=== PATIENT | male | born 1955 | race Caucasian/White ===

== ENCOUNTER → 2019-03-06 | Day surgery (SDC) | payer BC ==
[2019-03-05 15:44] VITALS: BMI 24.7
[~2019-03-06] MED LIST: Fentanyl 100 MCG/2 ML VIAL ONE; Midazolam HCl 2 mg/2 ml Vial ONE
[2019-03-06 08:32] LABS: Hemoglobin 12.6 g/dL (14.0-18.0); Platelet Count 264 thou/uL (130-400)
[2019-03-06 08:56] LABS: Anion Gap 10 mmol/L (10-20); BUN (Urea Nitrogen) 17 mg/dL (8.4-25.7); Calc. Creatinine Clearance 89 mL/min (70-130); Calcium 9.5 mg/dL (7.8-10.44); Carbon Dioxide 28 mmol/L (23-31); Chloride 105 mmol/L (98-107); Estimated GFR-MDRD 84; Glucose 96 mg/dL (80-115); Potassium 4.1 mmol/L (3.5-5.1); Sodium 139 mmol/L (136-145)
--- NOTE | 2019-03-07 09:22 | OP ---
DATE OF PROCEDURE: 03/06/2019 PREOPERATIVE DIAGNOSIS: Right tonsil mass. POSTOPERATIVE DIAGNOSIS: Right tonsil mass. PROCEDURE PERFORMED: 1. Direct laryngoscopy. 2. Right tonsillectomy for biopsy over 12. FINDINGS: The patient had a large firm tonsil that was rubbery in quality and sent for fresh histologic evaluation and lymphoma studies. PROCEDURE IN DETAIL: After consent was obtained, the patient was identified and brought to the operating room, and placed on the operating room table in the supine position. General endotracheal anesthesia was obtained. The patient was positioned for surgery. We then underwent systematic evaluation under anesthesia including laryngoscopy. No abnormalities other than the tonsil was found during examination. The tonsil was exophytic and rubbery in quality. The patient underwent a hemostatic tonsillectomy by first placing a Shayy-Juan Diego mouth gag and then grasping the tonsil, retracting it medially within a Reagan tip electrocautery. The tonsil was hemostatically dissected from the underlying pharyngeal musculature. Ultimately the posterior tonsillar pillar mucosa and the base of tongue connection was transected and this specimen was sent for histologic evaluation and lymphoma studies. There was no bleeding, it was addressed with the suction cautery and the patient was then awakened, extubated, taken to the recovery room in stable condition prior to discharge to home. Job ID: [id number]
== END ==
LOC: SDC 07:11
PROVIDERS: ATTEND Specialist
PROC: 0CTPXZZ Resection of Tonsils, External Approach (ICD-10-PCS; principal; 2019-03-06)
PROC: 0CJS8ZZ Inspection of Larynx, Via Natural or Artificial Opening Endoscopic (ICD-10-PCS; principal; 2019-03-06)
DX: C09.9 Malignant neoplasm of tonsil, unspecified (principal); I10 Essential (primary) hypertension; K21.9 Gastro-esophageal reflux disease without esophagitis; Z79.899 Other long term (current) drug therapy; Z87.891 Personal history of nicotine dependence; Z88.5 Allergy status to narcotic agent
CPT/HCPCS: 36415; 80048; 85014; 85018; 85049; 88184; 88304; 88309; 88341; 88342; 93005; 93010; J2250; J3010

== ENCOUNTER 2019-04-01 14:08 | Outpatient (CLI) | payer BC ==
--- NOTE | 2019-04-01 15:33 | PET ---
Radionucleotide with CT attenuation correction HISTORY: Squamous cell carcinoma right tonsil. Initial staging. FINDINGS: Physiologic uptake of radiotracer throughout the enteric system and along each urinary trac t. No abnormal tonsillar uptake or other abnormalities are apparent. Images of the torso show physiologic uptake. No hypermetabolic activity. Nondiagnostic CT attenuation correction images show mild mucosal thickening in the right maxillary si nus. Calcification within the carotid arteries and throughout the other arterial structures. Bovine origin of the great vessels at the aortic arch. Left renal cyst. Postoperative changes of the right colon. Scattered diverticula of the colon without adjacent inflamm ation. IMPRESSION: No scintigraphic evidence of residual or metastatic neoplasm. Right maxillary sinusitis. Atherosclerosis. Diverticulosis. No evidence of diverticulitis.
== END 2019-04-01 14:09 | disposition home or self-care (01) ==
LOC: PET 14:08
PROVIDERS: ATTEND Radiology Radiation Oncology
DX: C09.9 Malignant neoplasm of tonsil, unspecified (principal); C09.8 Malignant neoplasm of overlapping sites of tonsil; J32.0 Chronic maxillary sinusitis; I70.0 Atherosclerosis of aorta; K57.90 Diverticulosis of intestine, part unspecified, without perforation or abscess without bleeding
CPT/HCPCS: 78815; A9552

== ENCOUNTER 2021-06-02 13:18 | Outpatient (CLI) | payer MEDICARE | END 2021-06-02 13:19 | disposition home or self-care (01) | LOC: BICCT 13:18 | PROVIDERS: ATTEND Family Medicine | DX: Z12.2 Encounter for screening for malignant neoplasm of respiratory organs (principal); Z87.891 Personal history of nicotine dependence; I25.10 Atherosclerotic heart disease of native coronary artery without angina pectoris; J43.2 Centrilobular emphysema | CPT/HCPCS: 71271 ==

== ENCOUNTER 2022-06-06 11:05 | Outpatient (CLI) | payer MEDICARE | END 2022-06-06 11:06 | disposition home or self-care (01) | LOC: BICCT 11:05 | PROVIDERS: ATTEND Family Medicine | DX: Z12.2 Encounter for screening for malignant neoplasm of respiratory organs (principal); Z87.891 Personal history of nicotine dependence | CPT/HCPCS: 71271 ==

== ENCOUNTER 2024-04-08 09:49 | Outpatient (CLI) | payer MEDICARE | END 2024-04-08 09:50 | disposition home or self-care (01) | LOC: RAD 09:49 | PROVIDERS: ATTEND Internal Medicine | DX: R06.00 Dyspnea, unspecified (principal) | CPT/HCPCS: 71046 ==